=== PATIENT | male | born 1960 | race Two or more races ===

== ENCOUNTER 2024-04-06 06:26 | Inpatient (IN) | payer OTHER, MEDICAID ==
[~2024-04-06] VITALS: Ht 165.1 cm; Wt 78.6 kg
--- NOTE | 2024-04-06 06:55 | ED.PDOC ---
Epistaxis- HPI HPI Comments 63 y.o male with PMH of HTN, AFIB, HDL, Gout, and Parkinson's, presents to the ED via EMS for an evaluation of epistaxis that started today at 0100. Per EMS, patient was unable to control bleeding at home, called 911 and on scene appeared to be hypertensive at 194 systolic. Patient complains of dizziness upon ED arrival. Patient is on Xeralto for AFIB and has a a deep brain stimulation (DBS) device in place. No chest pain reported. Patient is not actively bleeding at this time. Chief Complaint: Nose Bleed Time Seen by MD: 06:46 Reviewed Notes: Nurses Notes, Diesel Truck Technician Notes, Medications, Allergies Allergies: Coded Allergies: NO KNOWN ALLERGIES (Unverified , 07/23/23) Information Source: Patient, Emergency Med Personnel Mode of Arrival: EMS Severity: Bleeding Controlled Timing: Days Duration: Since onset Location: Both narises Mechanism: Spontaneous onset Circumstances: Unknown History of: HTN Nose: Normal Nose: Intranasal/Septum: Blood Bleeding Status: No active bleeding Bleeding Amount: Moderate Source: Unidentified Associated signs and symptoms: None Past Medical History PAST MEDICAL HISTORY: AFIB, Gout, High Lipids, HTN, Seizures Past Medical History (Other): Parkinson's Surgical History: Unknown Surgical History (Other): deep brain stimulation (DBS) Family History Family History: Unknown Social History Smoker: Non-Smoker Alcohol: Denies ETOH Use Drugs: Denies Drug Use Lives In: Home Constitutional: denies: chills, diaphoresis, fatigue, fever, malaise, sweats, weakness, others EENTM: reports: nose bleeding; denies: blurred vision, double vision, ear bleeding, ear discharge, ear drainage, ear pain, ear ringing, eye pain, eye redness, hearing loss, mouth pain, mouth swelling, nasal discharge, nose congestion, nose pain, photophobia, tearing, throat pain, throat swelling, voice changes, others Respiratory: denies: cough, hemoptysis, orthopnea, SOB at rest, shortness of breath, SOB with excertion, stridor, wheezing, others Cardiovascular: denies: chest pain, dizzy spells, diaphoresis, Dyspnea on exertion, edema, irregular heart beat, left arm pain, lightheadedness, palpitations, PND, syncope, others Gastrointestinal: denies: abdomen distended, abdominal pain, blood streaked bowels, constipated, diarrhea, dysphagia, difficulty swallowing, hematemesis, melena, nausea, poor appetite, poor fluid intake, rectal bleeding, rectal pain, vomiting, others Genitourinary: denies: burning, dysuria, flank pain, frequency, hematuria, incontinence, penile discharge, penile sore, pain, testicle pain, testicle swelling, urgency, others Neurological: denies: dizziness, fainting, headache, left sided numbness, left sided weakness, numbness, paresthesia, pre-existing deficit, right sided numbness, right sided weakness, seizure, speech problems, tingling, tremors, weakness, others Musculoskeletal: denies: back pain, gout, joint pain, joint swelling, muscle pain, muscle stiffness, neck pain, others Integumetry: denies: bruises, change in color, change in hair/nails, dryness, laceration, lesions, lumps, rash, wounds, others Allergic/Immunocompromised: denies: Difficulty Healing, Frequent Infections, H richard, Itching, others Hematologic/Lymphatic: denies: anemia, blood clots, easy bleeding, easy bruising, swollen glands, others Endocrine: denies: excessive hunger, excessive sweating, excessive thirst, excessive urination, flushing, intolerance to cold, intolerance to heat, unexplained weight gain, unexplained weight loss, others Psychiatric: denies: anxiety, bipolar disorder, depression, hopeless, panic disorder, schizophrenia, sleepless, suicidal, others All Other Systems: Reviewed and Negative Physical Exam General Appearance: Moderate Distress HEENT: Other (Dried blood right nostril) Neck: Full Range of Motion, Non-Tender, Normal, Normal Inspection Respiratory: Chest Non-Tender, Lungs Clear, No Accessory Muscle Use, No Respiratory Distress, Normal Breath Sounds Cardiovascular: No Edema, No JVD, No Murmur, No Gallop, Normal Peripheral Pulses, Regular Rate/Rhythm Breast Exam: Deferred Gastrointestinal: No Organomegaly, Non Tender, No Pulsatile Mass, Normal Bowel Sounds, Soft Genitalia: Deferred Pelvic: Deferred Rectal: Deferred Extremities: Pedal edema Musculoskeletal : Apperance: Normal Neurologic: Alert Cerebellar Function: NOT DONE Reflexes: NOT DONE Skin: Normal Color Peripheral Pulses: 3+ Radial (R), 3+ Radial (L) Lymphatic: No Adenopathy Was a procedure done? Was a procedure done?: No Differential Diagnosis (NSB) Differential Diagnosis: Anterior Nasal Bleed, Posterior Nasal Bleed, Hypertension, Coagulopathy X-Ray, Labs, Meds, VS Vital Signs Date Time Temp Pulse Resp B/P (MAP) Pulse Ox O2 Delivery O2 Flow Rate FiO2 04/06/24 10:00 83 16 141/72 (95) 97 04/06/24 08:57 181/109 04/06/24 08:55 102 181/109 04/06/24 07:36 84 184/94 04/06/24 06:58 89 15 96 Room Air* 0 21 04/06/24 06:45 97.8 90 15 161/105 (123) 96 97.8 04/06/24 06:39 98.5 92 16 182/94 (123) 99 Lab Test 04/06/24 07:02 Range/Units White Blood Count 6.7 4.4-10.8 10^3/uL Red Blood Count 4.80 4.5-5.90 10^6/uL Hemoglobin 14.7 13.5-17.5 g/dL Hematocrit 43.0 41.0-53.0 % Mean Corpuscular Volume 89.6 80.0-100.0 fL Mean Corpuscular Hemoglobin 30.6 28.0-32.0 pg Mean Corpuscular Hemoglobin Concent 34.1 32.0-36.0 g/dL Red Cell Distribution Width 13.4 11.8-14.3 % Platelet Count 114 L 140-450 10^3/uL Mean Platelet Volume 8.1 6.9-10.8 fL Neutrophils (%) (Auto) 78.7 37.0-80.0 % Lymphocytes (%) (Auto) 15.0 10.0-50.0 % Monocytes (%) (Auto) 4.9 0.0-12.0 % Eosinophils (%) (Auto) 1.2 0.0-7.0 % Basophils (%) (Auto) 0.2 0.0-2.0 % Neutrophils # (Auto) 5.3 1.6-8.6 10 ^3/uL Lymphocytes # (Auto) 1.0 0.4-5.4 10 ^3/uL Monocytes # (Auto) 0.3 0-1.3 10 ^3/uL Eosinophils # (Auto) 0.1 0-0.8 10 ^3/uL Basophils # (Auto) 0 0-0.2 10 ^3/uL Nucleated Red Blood Cells 0.0 % Prothrombin Time 11.2 9.3-11.8 sec Prothrombin Time INR 1.06 0.9-1.15 Activated Partial Thromboplast Time 31.3 24.5-34.5 SEC Sodium Level 147 H 136-145 mmol/L Potassium Level 4.0 3.5-5.1 mmol/L Chloride Level 111 H 98-107 mmol/L Carbon Dioxide Level 32 H 20-31 mmol/L Anion Gap 4 L 5-15 Blood Urea Nitrogen 13 9-23 mg/dL Creatinine 0.95 0.700-1.30 mg/dL Glomerular Filtration Rate Calc 89 >90 mL/min BUN/Creatinine Ratio 13.7 10.0-20.0 Serum Glucose 121 H 74-106 mg/dL Calcium Level 9.1 8.7-10.4 mg/dL Current Medications Medications (Trade) Dose Ordered Sig/Sriram Route Start Time Stop Time Status Last Admin Labetalol HCl (Labetalol HCl) 10 mg ONCE ONCE IV 04/06/24 07:00 04/06/24 07:17 DC 04/06/24 07:36 Hydralazine HCl (Apresoline Injection) 10 mg ONCE ONCE IV 04/06/24 08:45 04/06/24 08:46 DC 04/06/24 08:57 Patient alert. Blood pressure elevated. Came in for nosebleed. Dried blood at the right nares. Answering all questions. He is on blood thinner. Reviewed his previous visit. Was given labetalol. EKG does not show any acute process. Cardiac rhythm within normal limits. Explained to the patient. Continue cardiac monitoring. Time of 1ST Reevaluation: 06:48 Reevaluation 1ST: Unchanged Patient Education/Counseling: Diagnosis, Treatment, Prognosis Family Education/Counseling: No Family Present Additional Information The following tests were ordered, and results were reviewed by me: LAB and PHA Additional Information was gathered from interviewing the following independent historians: Paramedics I discussed treatment and results with medical personnel Departure 1 Departure Time of Disposition: 07:00 Impression: Primary Impression: Hypertensive emergency Additional Impression: Epistaxis Disposition: ADMITTED INPATIENT Admit to: Med Surg Condition: Guarded Critical Care Note Critical Care Time?: Yes (45 min-critical care time only) Stability Stability form required: No I personally scribed for MICK MADERA MD ([email or web address]) on 04/06/24 at 06:55. Electronically submitted by Marisol Arredondo ([facility]). I personally scribed for MICK MADERA MD ([email or web address]) on 04/06/24 at 10:48. Electronically submitted by Marisol Arredondo ([facility]). MICK MADERA MD Apr 06, 2024 06:55
[2024-04-06 06:58] VITALS: PULSE 89; RESP 15; O2SAT 96
[2024-04-06 07:26] LABS: Basophils # (auto) 0 10 ^3/uL (0-0.2); Basophils % (auto) 0.2 % (0.0-2.0); Eosinophils # (auto) 0.1 10 ^3/uL (0-0.8); Eosinophils % (auto) 1.2 % (0.0-7.0); Hemoglobin 14.7 g/dL (13.5-17.5); Mean Corpuscular Hemoglobin 30.6 pg (28.0-32.0); Mean Corpuscular Hgb Conc. 34.1 g/dL (32.0-36.0); Mean Corpuscular Volume 89.6 fL (80.0-100.0); Monocytes # (auto) 0.3 10 ^3/uL (0-1.3); Monocytes % (auto) 4.9 % (0.0-12.0); Neutrophils # (auto) 5.3 10 ^3/uL (1.6-8.6); Neutrophils % (auto) 78.7 % (37.0-80.0); Platelet Count (auto) 114 10^3/uL (140-450); Red Cell Distribution Width 13.4 % (11.8-14.3); White Blood Cell 6.7 10^3/uL (4.4-10.8)
[2024-04-06 07:35] LABS: Anion Gap 4 (5-15)
[2024-04-06 07:36] LABS: Calcium 9.1 mg/dL (8.7-10.4)
[2024-04-06] MEDS: LABETALOL HCL 20 MG/4 ML VL IV ONE (07:36)
[2024-04-06 07:41] LABS: BUN/Creatinine Ratio 13.7 (10.0-20.0); Blood Urea Nitrogen 13 mg/dL (9-23)
[2024-04-06 07:44] LABS: Carbon Dioxide 32 mmol/L (20-31); Chloride 111 mmol/L (98-107); Glucose 121 mg/dL (74-106); Sodium 147 mmol/L (136-145)
[2024-04-06 08:17] LABS: INR 1.06 (0.9-1.15); Partial Thromboplastin Time 31.3 SEC (24.5-34.5); Prothrombin Time 11.2 sec (9.3-11.8)
[2024-04-06] MEDS: hydrALAZINE HCL 20 MG/ML VL IV ONE (08:57)
[2024-04-06] MEDS ORDERED: MORPHINE SULFATE INJ 2 MG/ml SYRG IV PRN (13:00)
[2024-04-06] MEDS ORDERED: NITROGLYCERIN 0.4 MG SL TAB SL PRN (13:00)
--- NOTE | 2024-04-06 13:09 | DVHHP2 ---
History of Present Illness Reason for Visit: Epistaxis History of Present Illness 63-year-old male with a history of atrial fibrillation on Xarelto, hypertension, Parkinson's disease comes with chief complaint of nosebleed since this morning. His blood pressure was also elevated Review of Systems Constitutional: Yes: Weakness Allergies: Coded Allergies: NO KNOWN ALLERGIES (Unverified , 07/23/23) Medications Current Medications Medications Dose Ordered Sig/Sriram Route Start Time Stop Time Status Last Admin Dose Admin Nitroglycerin 0.4 mg Q5MINP PRN SL 04/06/24 13:00 UNV Morphine Sulfate 2 mg Q30M PRN IV 04/06/24 13:00 UNV Hydralazine HCl 10 mg Q6HP PRN IV 04/06/24 13:00 UNV Tamsulosin HCl 0.4 mg QPM PO 04/06/24 18:00 UNV Losartan Potassium 50 mg DAILY PO 04/07/24 10:00 UNV Exam Vital Signs Vital Signs Date Time Temp Pulse Resp B/P (MAP) Pulse Ox O2 Delivery O2 Flow Rate FiO2 04/06/24 12:00 79 20 154/77 (102) 96 04/06/24 06:58 Room Air* 0 21 04/06/24 06:45 97.8 97.8 General Appearance: Alert, Oriented X3, Cooperative Respiratory: Clear to auscultation, Normal air movement Cardiovascular: Regular rate, Normal S1, Normal S2, No murmurs Abdominal: Normal bowel sounds, Soft, No tenderness Extremities: No edema Labs/Xrays Labs Test 04/06/24 07:02 Range/Units White Blood Count 6.7 4.4-10.8 10^3/uL Red Blood Count 4.80 4.5-5.90 10^6/uL Hemoglobin 14.7 13.5-17.5 g/dL Hematocrit 43.0 41.0-53.0 % Mean Corpuscular Volume 89.6 80.0-100.0 fL Mean Corpuscular Hemoglobin 30.6 28.0-32.0 pg Mean Corpuscular Hemoglobin Concent 34.1 32.0-36.0 g/dL Red Cell Distribution Width 13.4 11.8-14.3 % Platelet Count 114 L 140-450 10^3/uL Mean Platelet Volume 8.1 6.9-10.8 fL Neutrophils (%) (Auto) 78.7 37.0-80.0 % Lymphocytes (%) (Auto) 15.0 10.0-50.0 % Monocytes (%) (Auto) 4.9 0.0-12.0 % Eosinophils (%) (Auto) 1.2 0.0-7.0 % Basophils (%) (Auto) 0.2 0.0-2.0 % Neutrophils # (Auto) 5.3 1.6-8.6 10 ^3/uL Lymphocytes # (Auto) 1.0 0.4-5.4 10 ^3/uL Monocytes # (Auto) 0.3 0-1.3 10 ^3/uL Eosinophils # (Auto) 0.1 0-0.8 10 ^3/uL Basophils # (Auto) 0 0-0.2 10 ^3/uL Nucleated Red Blood Cells 0.0 % Prothrombin Time 11.2 9.3-11.8 sec Prothrombin Time INR 1.06 0.9-1.15 Activated Partial Thromboplast Time 31.3 24.5-34.5 SEC Sodium Level 147 H 136-145 mmol/L Potassium Level 4.0 3.5-5.1 mmol/L Chloride Level 111 H 98-107 mmol/L Carbon Dioxide Level 32 H 20-31 mmol/L Anion Gap 4 L 5-15 Blood Urea Nitrogen 13 9-23 mg/dL Creatinine 0.95 0.700-1.30 mg/dL Glomerular Filtration Rate Calc 89 >90 mL/min BUN/Creatinine Ratio 13.7 10.0-20.0 Serum Glucose 121 H 74-106 mg/dL Calcium Level 9.1 8.7-10.4 mg/dL Assessment/Plan Assessment/Plan Epistaxis Hypertensive urgency Uncontrolled hypertension Parkinson's disease BPH Atrial fibrillation on Xarelto Seizure disorder Hypernatremia Plan Admit to telemetry Resume his antihypertensive medications: Amlodipine, losartan, p.r.n. IV hydralazine Resume sotalol Hold Xarelto Resume Sinemet Physical therapy Check the urinalysis Monitor the patient closely overnight Full code Plan discussed with: Patient My Orders Orders - AMANDA OROSCO MD Procedure Category Date Status Time Admit ADMIT 04/06/24 Transmitted 12:47 Nitroglycerin PHA 04/06/24 Logged Sublingual (Ntrostat 13:00 Morphine Sulfate PHA 04/06/24 Logged Injection 13:00 Stat Ekg For Chest [facility] 04/06/24 In Process Pain 12:47 Notify Of Changes [facility] 04/06/24 In Process From Base 12:47 Pole Shaver Helper For [facility] 04/06/24 In Process 24 Hours 12:47 Emergency Dysrhythmia [facility] 04/06/24 In Process Protocol 12:47 Rhythm Strips Once [facility] 04/06/24 In Process Every Shift 12:47 Oxygen By Nasal RT 04/06/24 Transmitted Cannula 12:47 Complete Blood Count LAB 04/07/24 Verified 04:00 Comprehensive LAB 04/07/24 Verified Metabolic Panel 04:00 Magnesium LAB 04/07/24 Verified 04:00 PTPTT LAB 04/07/24 Verified 04:00 Thyroid Stimulating LAB 04/07/24 Verified Hormone 04:00 Urinalysis LAB 04/06/24 Logged 12:59 Pt Request For Service PT 04/06/24 Logged 12:59 Hydralazine Injection PHA 04/06/24 Logged (Apresoline Inject 13:00 Tamsulosin PHA 04/06/24 Logged Hydrochloride (Flomax) 18:00 Losartan Tablet PHA 04/07/24 Logged (Cozaar Tablet) 10:00 Losartan Tablet PHA 04/06/24 Logged (Cozaar Tablet) 13:15 Amlodipine Tablet PHA 04/06/24 Logged (Norvasc Tablet) 13:15 Amlodipine Tablet PHA 04/07/24 Logged (Norvasc Tablet) 10:00 Allopurinol Tablet PHA 04/07/24 Logged (Zyloprim Tablet) 10:00 Atorvastatin (Lipitor) PHA 04/06/24 Logged 22:00 Levetiracetam Tablet PHA 04/06/24 Logged (Keppra Tablet) 22:00 Levetiracetam Tablet PHA 04/06/24 Logged (Keppra Tablet) 13:15 Carbidopa W Levodopa PHA 04/06/24 Logged 25/100mg (Sinemet 2 14:00 Carbidopa W Levodopa PHA 04/06/24 Logged 25/100mg (Sinemet 2 13:15 Sotalol Hcl (Betapace) PHA 04/06/24 Logged 22:00 Date of Service: Apr 06, 2024 Billing Provider: AMANDA OROSCO MD Common Visit Codes: NOT BILLABLE AMANDA OROSCO MD Apr 06, 2024 13:08
[2024-04-06] MEDS ORDERED: CARBIDOPA W LEVODOPA 25/100mg TABLET PO ONE (13:15)
[2024-04-06] MEDS ORDERED: ONDANSETRON HCL 4 MG/2 ML VIAL IV PRN (13:15)
[2024-04-06] MEDS ORDERED: ACETAMINOPHEN 325 MG TAB PO PRN (13:15)
[2024-04-06] MEDS: CARBIDOPA W LEVODOPA 25/100mg TABLET PO SCH (15:43)
[2024-04-06] MEDS: HYDROcodone-ACET 5/325MG TAB PO PRN (15:43)
[2024-04-06] MEDS: levETIRAcetam 500 MG TAB PO ONE (15:43)
[2024-04-06] MEDS: amLODIPine BESYLATE 5 MG TAB PO ONE (15:44)
[2024-04-06] MEDS: LOSARTAN POTASSIUM 50 MG TAB PO ONE (15:44)
[2024-04-06 15:56] LABS: Urine Bacteria FEW /hpf (None Seen); Urine Blood Negative /uL (Negative); Urine Clarity Clear (Clear); Urine Color Yellow (Yellow); Urine Mucus FEW (None Seen); Urine Protein, UAD TRACE (Negative); Urine Specific Gravity 1.023 (1.001-1.035); Urine Urobilinogen Normal (Negative); Urine WBC 1 /hpf (0 - 3)
[2024-04-06] MEDS: TAMSULOSIN HYDROCHLORIDE 0.4 MG CAP PO SCH (19:12)
[2024-04-06] MEDS: SOTALOL HCL 80 MG TAB PO SCH (23:51)
[2024-04-06] MEDS: FAMOTIDINE 20 MG TAB PO SCH (23:52)
[2024-04-06] MEDS: ATORVASTATIN 20 MG TAB PO SCH (23:52)
[2024-04-06] MEDS: levETIRAcetam 500 MG TAB PO SCH (23:53)
[2024-04-07 01:00] VITALS: BP 145/87; PULSE 77; RESP 20; TEMP 98.3; O2SAT 94
[2024-04-07 05:00] VITALS: BP 155/80; PULSE 56; RESP 17; TEMP 97.8; O2SAT 94
[2024-04-07] MEDS: hydrALAZINE HCL 20 MG/ML VL IV PRN (06:26)
[2024-04-07 07:30] LABS: Alkaline Phosphatase 84 U/L (46-116); Anion Gap 6 (5-15); Aspartate Aminotransferase 13 U/L (13-40); BUN/Creatinine Ratio 17.4 (10.0-20.0); Blood Urea Nitrogen 15 mg/dL (9-23); Calcium 9.6 mg/dL (8.7-10.4); Carbon Dioxide 29 mmol/L (20-31); Glucose 105 mg/dL (74-106); Magnesium 2.3 mg/dL (1.6-2.6); Potassium 4.3 mmol/L (3.5-5.1); Sodium 143 mmol/L (136-145)
[2024-04-07 07:31] LABS: Bilirubin, Total 0.9 mg/dL (0.2-1.0); Total Protein 6.1 g/dL (5.7-8.2)
[2024-04-07 07:32] LABS: Basophils # (auto) 0 10 ^3/uL (0-0.2); Basophils % (auto) 0.1 % (0.0-2.0); Eosinophils # (auto) 0.1 10 ^3/uL (0-0.8); Eosinophils % (auto) 0.9 % (0.0-7.0); Hematocrit 42.9 % (41.0-53.0); Hemoglobin 14.8 g/dL (13.5-17.5); Mean Corpuscular Hemoglobin 31.2 pg (28.0-32.0); Mean Corpuscular Hgb Conc. 34.5 g/dL (32.0-36.0); Mean Corpuscular Volume 90.5 fL (80.0-100.0); Monocytes # (auto) 0.3 10 ^3/uL (0-1.3); Monocytes % (auto) 5.4 % (0.0-12.0); Neutrophils # (auto) 4.3 10 ^3/uL (1.6-8.6); Neutrophils % (auto) 76.6 % (37.0-80.0); Nucleated Red Blood Cells % 0.2 %; Platelet Count (auto) 130 10^3/uL (140-450); Red Blood Cells 4.74 10^6/uL (4.5-5.90); Red Cell Distribution Width 13.1 % (11.8-14.3); White Blood Cell 5.6 10^3/uL (4.4-10.8)
[2024-04-07 07:33] LABS: Alanine Aminotransferase < 9 U/L (7-40); Chloride 108 mmol/L (98-107)
[2024-04-07 07:51] LABS: INR 1.03 (0.9-1.15); Partial Thromboplastin Time 29.8 SEC (24.5-34.5); Prothrombin Time 10.9 sec (9.3-11.8)
[2024-04-07 08:00] VITALS: PULSE 69; PULSE 71; RESP 16; O2SAT 91
[2024-04-07 09:00] VITALS: BP 148/80; PULSE 69; RESP 18; TEMP 97.4; O2SAT 91
[2024-04-07] MEDS: LOSARTAN POTASSIUM 50 MG TAB PO SCH (10:08)
[2024-04-07] MEDS: amLODIPine BESYLATE 5 MG TAB PO SCH (10:08)
[2024-04-07] MEDS: ALLOPURINOL 100 MG TAB PO SCH (10:08)
[2024-04-07 13:00] VITALS: BP 145/91; PULSE 60; RESP 16; TEMP 98.8; O2SAT 94
[2024-04-07 13:29] VITALS: BP 148/80; PULSE 69; RESP 16; TEMP 97.4; O2SAT 91
--- NOTE | 2024-04-07 15:56 | DVHDS2 ---
Discharge Summary Date of Admission Apr 06, 2024 at 12:47 Date of Discharge: Apr 07, 2024 Labs/Diagnostic Data: Laboratory Results Test 04/07/24 06:39 04/06/24 14:56 White Blood Count 5.6 10^3/uL (4.4-10.8) Red Blood Count 4.74 10^6/uL (4.5-5.90) Hemoglobin 14.8 g/dL (13.5-17.5) Hematocrit 42.9 % (41.0-53.0) Mean Corpuscular Volume 90.5 fL (80.0-100.0) Mean Corpuscular Hemoglobin 31.2 pg (28.0-32.0) Mean Corpuscular Hemoglobin Concent 34.5 g/dL (32.0-36.0) Red Cell Distribution Width 13.1 % (11.8-14.3) Platelet Count 130 10^3/uL (140-450) Mean Platelet Volume 8.6 fL (6.9-10.8) Neutrophils (%) (Auto) 76.6 % (37.0-80.0) Lymphocytes (%) (Auto) 17.0 % (10.0-50.0) Monocytes (%) (Auto) 5.4 % (0.0-12.0) Eosinophils (%) (Auto) 0.9 % (0.0-7.0) Basophils (%) (Auto) 0.1 % (0.0-2.0) Neutrophils # (Auto) 4.3 10 ^3/uL (1.6-8.6) Lymphocytes # (Auto) 1.0 10 ^3/uL (0.4-5.4) Monocytes # (Auto) 0.3 10 ^3/uL (0-1.3) Eosinophils # (Auto) 0.1 10 ^3/uL (0-0.8) Basophils # (Auto) 0 10 ^3/uL (0-0.2) Nucleated Red Blood Cells 0.2 % Prothrombin Time 10.9 sec (9.3-11.8) Prothrombin Time INR 1.03 (0.9-1.15) Activated Partial Thromboplast Time 29.8 SEC (24.5-34.5) Sodium Level 143 mmol/L (136-145) Potassium Level 4.3 mmol/L (3.5-5.1) Chloride Level 108 mmol/L (98-107) Carbon Dioxide Level 29 mmol/L (20-31) Anion Gap 6 (5-15) Blood Urea Nitrogen 15 mg/dL (9-23) Creatinine 0.86 mg/dL (0.700-1.30) Glomerular Filtration Rate Calc 96 mL/min (>90) BUN/Creatinine Ratio 17.4 (10.0-20.0) Serum Glucose 105 mg/dL (74-106) Calcium Level 9.6 mg/dL (8.7-10.4) Magnesium Level 2.3 mg/dL (1.6-2.6) Total Bilirubin 0.9 mg/dL (0.2-1.0) Aspartate Amino Transferase (AST) 13 U/L (13-40) Alanine Aminotransferase (ALT) < 9 U/L (7-40) Alkaline Phosphatase 84 U/L (46-116) Total Protein 6.1 g/dL (5.7-8.2) Albumin 4.0 g/dL (3.2-4.8) Thyroid Stimulating Hormone (TSH) 0.89 uIU/mL (0.55-4.78) Urine Color Yellow (Yellow) Urine Clarity Clear (Clear) Urine pH 7.0 (5.0-9.0) Urine Specific [place] 1.023 (1.001-1.035) Urine Protein Trace (Negative) Urine Ketones Negative (Negative) Urine Blood Negative /uL (Negative) Urine Nitrite Negative (Negative) Urine Bilirubin Negative (Negative) Urine Urobilinogen Normal mg/dL (Negative) Urine Leukocyte Esterase Negative /uL (Negative) Urine RBC 1 /hpf (0 - 3) Urine WBC 1 /hpf (0 - 3) Urine Squamous Epithelial Cells Few /hpf (<5) Urine Bacteria Few /hpf (None Seen) Urine Mucus Few (None Seen) Urine Glucose Normal mg/dL (Normal) Other Laboratory Tests 04/07/24 06:39 Brief Hx & Hospital Course: 63-year-old male with a history of Parkinson's disease and hypertension came with chief complaint of nosebleed His blood pressure was high on admission His nosebleed improved and was controlled after that Otherwise he is asymptomatic He was continued on his home medications This time the patient is asymptomatic and therefore he will be discharged home to continue same home medications Final diagnoses: Epistaxis Hypertensive urgency Uncontrolled hypertension Parkinson's disease BPH Atrial fibrillation on Xarelto Seizure disorder Hypernatremia Condition at Discharge: Stable Final Diagnosis/Problems List Epistaxis Hypertensive urgency Uncontrolled hypertension Parkinson's disease BPH Atrial fibrillation on Xarelto Seizure disorder Hypernatremia Discharge Disposition: Home SNF Discharge Will this Physician continue t: No Discharge Instruct/Medications Diet: Cardiac 2g Na,low cholest Activity: Bed rest Follow Up/Referral: PCP JESUS ALBERTO Medications: Resume all home medications Discharge Statement: "Patient was advised to return to the ER or call 911 if any headaches, dizziness, shortness of breath, chest pain, abdominal pain, bleeding, fevers, or worsening of medical condition. Patient was counseled about treatment plan, medications, possible side effects, patientverbalized understanding. All questions were answered to the best of my ability. This discharge took greater then 30 minutes in planning, reviewing documentation, counseling the patient, and discussing with other team members." ASSESSMENT ASSESSMENT Assessment Epistaxis Hypertensive urgency Uncontrolled hypertension Parkinson's disease BPH Atrial fibrillation on Xarelto Seizure disorder Hypernatremia Date of Service: Apr 07, 2024 Billing Provider: AMANDA OROSCO MD Common Visit Codes: NOT BILLABLE AMANDA OROSCO MD Apr 07, 2024 15:56
[2024-04-07] MEDS ORDERED: LOSARTAN POTASSIUM 50 MG TAB PO ONE (16:00)
== END 2024-04-07 14:46 | disposition home or self-care (01) | DRG 305 ==
LOC: ER 06:26 → EDBD 06:26 → TELE 12:47 → TELE-WESTW 22:55
PROVIDERS: ADMIT Internal Medicine Geriatric Medicine; ATTEND Internal Medicine Geriatric Medicine
DX: I16.0 Hypertensive urgency (principal); E87.0 Hyperosmolality and hypernatremia; R04.0 Epistaxis; G40.909 Epilepsy, unspecified, not intractable, without status epilepticus; G20.A1 Parkinson's disease without dyskinesia, without mention of fluctuations; N40.0 Benign prostatic hyperplasia without lower urinary tract symptoms; I48.91 Unspecified atrial fibrillation; M10.9 Gout, unspecified; E78.5 Hyperlipidemia, unspecified; Z79.01 Long term (current) use of anticoagulants
CPT/HCPCS: 36415; 80048; 80053; 81001; 83735; 84443; 85025; 85610; 85730; 96374; 96375; 97163; 99291; G0378